=== PATIENT | female | born 1950 | race Caucasian/White ===

== ENCOUNTER 2024-09-22 08:29 | Day surgery (SDC) | payer MEDICARE, SELFPAY ==
[2024-09-22 09:13] VITALS: BMI 19.8
[2024-09-22 09:19] VITALS: BP 135/96; PULSE 67; RESP 18; TEMP 36.6; O2SAT 99
[2024-09-22] MEDS: LACTATED RINGERS 1000ML 1,000 ML 50 ML IV (09:19)
--- NOTE | 2024-09-22 09:39 | EXP.HP ---
History of Present Illness *Admission Date: 09/22/24 *History of present illness: Mrs. Álvarez is a 74-year-old female that states on 2023, she developed marked diarrhea and urgency. This has not resolved. She does report diarrhea with watery, loose or soft stools daily with bowel urgency and some bowel frequency. She does feel as if she evacuates. She does have moderate gassiness and bloating. The bowel movements can be explosive and she has had at least 3 episodes of fecal incontinence since this began. She did have lab work with Dr. Rosa Faust/[facility]. Her CBC and chemistries were normal. Her hemoglobin hematocrit were 14.5 and 43.0. She had normal liver and pancreatic chemistries. She also had a normal CAT scan. The CAT scan was noncontrast with very brief report. I believe that she had a PCR stool panel (report not available) which was also normal. She was told by PCP that this was IBS with diarrhea. The patient has taken Imodium as needed. She is often afraid to leave the house or go out and do outside the home activities because of the fecal urgency and fear of incontinence. This is affecting her quality of life. She does get crampy abdominal discomfort. The patient did have panendoscopy in [facility] in December 2020 (Dr. Donna Palafox, ). At that time her endoscopy showed some changes of reflux and a very small 1 to 2 cm hiatal hernia with mild antral reactive gastropathy. Her colonoscopy revealed a 3 mm benign polyp and left-sided diverticulosis. The patient reports no rectal bleeding or significant weight loss. She does get some dizziness. [facility] Disclaimer: The information contained in this section may have been updated after the patient was seen, as this information can be updated by other users. Medical History (Updated 09/22/24 @ 09:17 by Tomás Delacruz RN) History of fracture of clavicle Murmur GERD (gastroesophageal reflux disease) Hiatal hernia Acute asthmatic bronchitis Osteoporosis Surgical History (Updated 09/22/24 @ 09:17 by Tomás Delacruz RN) History of breast biopsy H/O hand surgery Family History (Updated 09/22/24 @ 09:18 by Tomás Delacruz RN) Other Cancer Family history of macular degeneration Social History (Updated 09/22/24 @ 09:18 by Tomás Delacruz RN) Smoking Status: Never smoker alcohol intake: never current occupational status: retired Travel in the last 8 weeks?: None Have you lived/traveled outside [place] in past 30 days?: No Contact w/someone who lives/traveled outside [place] past 30 days?: No Exposure to someone with infectious disease in past 14 days?: No Do you have a fever (greater than 100.4 F or 38 C)?: No Have you tested positive for COVID-19?: No Exposed to someone with COVID-19 in past 14 days?: No Do you have a sore throat?: No Do you have a cough?: No Do you have any weakness?: No Are you experiencing any nausea/vomitting?: No Do you have any diarrhea?: No Are you experiencing any unusual bleeding?: No Do you have any muscle aches/pain?: No Do you have any abdominal pain?: No Are you experiencing loss of taste or smell?: No Other Medical History Have you received the Pneumonia Vaccine: Yes Review of Systems Review of Systems Review of systems (narrative): Negative *Cardiovascular Comments: Negative *Gastrointestinal Comments: Negative *Genitourinary Comments: Negative *Musculoskeletal Comments: Negative *Neurologic Comments: Negative Meds Home Medications and Allergies Home Medications ?Medication ?Instructions ?Recorded ?Confirmed ?Type calcium carbonate (Tums) 200 mg PO BID PRN gerd 07/09/24 09/22/24 History cholecalciferol (vitamin D3) 50 50 mcg PO DAILY 07/09/24 09/22/24 History mcg (2,000 unit) capsule denosumab 60 mg/mL subcutaneous 60 mg SQ [id number] 07/09/24 09/22/24 History syringe (Prolia) famotidine 40 mg tablet (Pepcid) 40 mg PO DAILY 07/09/24 09/22/24 History magnesium oxide 500 mg capsule 500 mg PO DAILY 07/09/24 09/22/24 History methylcellulose (with sugar) oral 1 tbsp PO DAILY 07/09/24 09/22/24 History powder (Citrucel (sucrose) oral powder) montelukast 10 mg tablet 10 mg PO DAILY 07/09/24 09/22/24 History gqjleoes-arrp-cgxf 8 mg-folic 400 1 tab PO DAILY 07/09/24 09/22/24 History mcg-K 50 mcg-lutein 300 mcg tablet (Centrum Silver Women) New Prescriptions to Start Prescriptions: Allergies Allergy/AdvReac Type Severity Reaction Status Date / Time No Known Allergies Allergy Verified 09/22/24 09:25 Exam Data for Last 24 hours Vital signs and Labs for Last 24 Hours: Temp Pulse Resp BP Pulse Ox O2 Del Method 97.8 F 67 18 135/96 H 99 Room Air 09/22/24 09:19 09/22/24 09:19 09/22/24 09:19 09/22/24 09:19 09/22/24 09:19 09/22/24 09:19 I & O for Last 24 hours: Intake & Output 09/19/24 09/20/24 09/21/24 09/22/24 23:59 23:59 23:59 23:59 Weight 130 lb *Routine HEENT Exam Head: Present normocephalic Eye: Present EOMI and PERRL ENT: Present mucous membranes moist *Routine Neck Exam Neck: Present supple *Routine Respiratory Exam Respiratory: Present CTA bilaterally *Routine Cardiovascular Exam Cardiovascular: Present RRR *Routine Abdominal Exam Abdominal: Present soft and normoactive bowel sounds; Absent tenderness *Routine Rectal Exam Rectal:: deferred *Routine Genitalia Exam Genitalia:: deferred *Routine Extremities Exam Extremities: Absent cyanosis, clubbing or edema *Routine Skin Exam Skin: Present warm; Absent rash *Routine Neurological Exam Neurological: Present alert and oriented X3 Assessment and Plan *Assessment and plan (1) Diarrhea: Status: Acute Category: Medical Code(s): R19.7 - Diarrhea, unspecified (2) Abdominal cramps: Status: Acute Category: Medical Code(s): R10.9 - Unspecified abdominal pain (3) Gassiness: Status: Acute Category: Medical Code(s): R14.0 - Abdominal distension (gaseous) (4) Bloating: Status: Acute Category: Medical Code(s): R14.0 - Abdominal distension (gaseous) Plan A/P: 1. Chronic diarrhea/fecal urgency, gassiness and bloating and intermittent incontinence is the preprocedural diagnosis. The patient will be anesthetized/sedated using MAC sedation. The patient has been seen and examined. Cardiac and lung assessment prior to the examination is stable. Proceed with planned diagnostic colonoscopy.
--- NOTE | 2024-09-22 09:41 | P.PNANES_ITS ---
[facility] Disclaimer: The information contained in this section may have been updated after the patient was seen, as this information can be updated by other users. Medical History (Updated 09/22/24 @ 09:17 by Tomás Delacruz RN) History of fracture of clavicle Murmur GERD (gastroesophageal reflux disease) Hiatal hernia Acute asthmatic bronchitis Osteoporosis Surgical History (Updated 09/22/24 @ 09:17 by Tomás Delacruz RN) History of breast biopsy H/O hand surgery Family History (Updated 09/22/24 @ 09:18 by Tomás Delacruz RN) Other Cancer Family history of macular degeneration Social History (Updated 09/22/24 @ 09:18 by Tomás Delacruz RN) Smoking Status: Never smoker alcohol intake: never substance use type: denies use current occupational status: retired Travel in the last 8 weeks?: None [facility] Anesthesia Checklist Patient Identification Patient Identification: Arm Band and Family Structural Data Admitted From: Home (Colonoscopy) Planned Operative Procedure/s: Colonoscopy Consent for Planned Operative Procedure(s) Verified: Yes Verified Documents: Surgical Consent and History and Physical NPO Status Verified Time NPO: 00:00 Additional verifications Patient : No Anesthesia Reactions: No Hx Blood Transfusions: No Blood Transfusion Reaction: No Cephalosporin Allergy: No Previous Colonoscopy: Yes Airway Assessment Mallampati Score:: Class III C-Spine Mobility Assessed: Yes TMJ Mobility Assessed: Yes Dentition: Good Dentition Neurological Assessment Level of Consciousness: Awake, Alert, Appropriate and Follows Commands Hx Seizures: No Numbness or tingling in extremities: No Anesthesia Plan Anesthesia Risk discussed: Yes ASA Class: II Anesthesia Type: MAC Preoperative Comments Pre-Operative Comments: chronic asthmatic bronchitis
--- NOTE | 2024-09-22 09:43 | P.PCN_ITS ---
[facility] Procedure Note Date: 09/22/24 Time: 10:00 Procedure Note:: Colonoscopy Procedure Report: Colonoscopy with cold biopsies Endoscopist: Demetrius Sharp II, MD Referring physician: Ava Faust Date of Procedure: September 22, 2024 Equipment: Olympus 190 variable stiffness pediatric colonoscope Sedation: MAC sedation Indication: Mrs. Álvarez is a 74-year-old female who is here for diagnostic colonoscopy. She states on 2023, she developed marked diarrhea and urgency. This had not resolved. The patient's fecal calprotectin level was 113. Her C. difficile testing was normal. The patient has had marked improvement with dietary measures and FiberCon. Her bowel movements are now soft. She did previously report diarrhea with watery, loose or soft stools daily with bowel urgency and some bowel frequency. She does feel as if she evacuates. She does have moderate gassiness and bloating. The bowel movements can be explosive and she has had at least 3 episodes of fecal incontinence since this began. She did have lab work with Dr. Rosa Faust/[facility]. Her CBC and chemistries were normal. Her hemoglobin hematocrit were 14.5 and 43.0. She had normal liver and pancreatic chemistries. She also had a normal CAT scan. The CAT scan was noncontrast with very brief report. I believe that she had a PCR stool panel (report not available) which was also normal. She was told by PCP that this was IBS with diarrhea. The patient had taken Imodium as needed. She was often afraid to leave the house or go out and do outside the home activities because of the fecal urgency and fear of incontinence. This was affecting her quality of life. She would get crampy abdominal discomfort. The patient did have panendoscopy in [facility] in December 2020 (Dr. Donna Palafox, DO). At that time her endoscopy showed some changes of reflux and a very small 1 to 2 cm hiatal hernia with mild antral reactive gastropathy. Her colonoscopy revealed a 3 mm benign polyp and left- sided diverticulosis. The patient reports no rectal bleeding or significant weight loss. She does get some dizziness. Procedure: Prior to the procedure, a history and physical exam was performed, and patient's medications and allergies were reviewed. The risks, benefits and alternatives of the sedation and procedure were discussed with the patient. All questions were answered and informed consent was obtained. The patient was brought to the procedure room. Patient identification and proposed procedure were verified by the physician and the nurse. The patient was placed in a left lateral decubitus position and the scope was passed under direct vision. Throughout the procedure, the patient's blood pressure, pulse, and oxygen saturations were monitored continuously. The colonoscopy was accomplished without difficulty. The patient tolerated the procedure well. Findings: On digital rectal examination there was normal rectal tone. There were no external hemorrhoids. The colonoscope was introduced through the anal canal to the rectum and advanced to the cecum. The ileocecal valve and appendiceal orifice were identified. The scope was advanced a short distance into the ileum which appeared grossly normal. The scope was then withdrawn into the colon. Cold biopsies were taken x 4 of the right colon to rule out microscopic colitis. The remaining cecum, ascending and transverse colon and mucosa were grossly normal. There were scattered diverticuli throughout the descending and sigmoid colon (LEFT colon). The rectum itself was normal. Upon retroflexion within the rectum there were grade 1 internal hemorrhoids. The preparation was excellent throughout with Winthrop Preparation Score of 9. The cecal time was 10 minutes. Impression: 1. Mild left-sided diverticulosis 2. Grade 1 internal hemorrhoids Plan: I will follow-up the biopsies to rule out microscopic colitis. The patient is clinically improved with dietary measures and bulking FiberCon. I will discuss the findings with the patient and family.
[2024-09-22 10:07] VITALS: BP 111/62; PULSE 64; RESP 16; TEMP 36.2; O2SAT 99
[2024-09-22 10:17] VITALS: BP 121/69; PULSE 63; RESP 16; O2SAT 99
[2024-09-22 10:27] VITALS: BP 120/75; PULSE 73; RESP 16; O2SAT 99
[2024-09-22 10:37] VITALS: BP 137/72; PULSE 69; RESP 16; O2SAT 99
== END 2024-09-22 10:37 | disposition home or self-care (01) ==
PROVIDERS: PCP Nurse Practitioner Family; Visit Provider Internal Medicine Gastroenterology
PROC: 0DJD8ZZ Inspection of Lower Intestinal Tract, Via Natural or Artificial Opening Endoscopic (ICD-10-PCS; CPT 45378; principal; 2024-09-22 10:30)
DX: R19.7 Diarrhea, unspecified (principal); K57.30 Diverticulosis of large intestine without perforation or abscess without bleeding; R15.2 Fecal urgency; K64.0 First degree hemorrhoids; R10.9 Unspecified abdominal pain; R14.0 Abdominal distension (gaseous); Z86.0100 Personal history of colon polyps, unspecified; K21.9 Gastro-esophageal reflux disease without esophagitis; M81.0 Age-related osteoporosis without current pathological fracture; J45.909 Unspecified asthma, uncomplicated; Z79.899 Other long term (current) drug therapy; Z79.620 Long term (current) use of immunosuppressive biologic
CPT/HCPCS: 45380; J2003; J2704; J7120